=== PATIENT | male | born 1980 | race Caucasian/White ===

== ENCOUNTER → 2019-01-22 | Outpatient (CLI) | payer OTHER ==
[2019-01-22 13:01] LABS: Basophils % (A) 0 %; Eosinophils # (A) 0.2 k/uL (0-0.7); Eosinophils % (A) 3 %; HCT 45.3 % (39.0-53.0); HGB 15.5 gm/dL (13.0-17.5); Lymphocytes # (A) 2.2 k/uL (1.0-4.8); Lymphocytes % (A) 32 %; MCH 30.4 pg (25.0-35.0); MCHC 34.2 g/dL (31.0-37.0); MCV 88.8 fL (80.0-100.0); Mean Platelet Volume 6.5; Monocytes # (A) 0.3 k/uL (0-1.0); Monocytes % (A) 5 %; Neutrophils % (A) 58 %; Platelet Count 233 k/uL (150-450); WBC 6.9 k/uL (3.8-10.6)
[2019-01-22 16:42] LABS: African American GFR (CKD) 126.9 (60.0-200.0); Albumin 4.6 g/dL (3.80-4.90); Albumin/Globulin Ratio 1.92 (1.60-3.17); Anion Gap 11.2 mmol/L (4.00-12.00); BUN/Creat Ratio 15.56 Ratio (12.00-20.00); Calcium 9.4 mg/dL (8.7-10.3); Carbon Dioxide 23.8 mmol/L (21.6-31.8); Globulin 2.4 g/dL (1.6-3.3); Potassium 4.1 mmol/L (3.5-5.5); Total Bilirubin 0.8 mg/dL (0.2-1.2)
[2019-01-22 17:47] LABS: T4, Free (Free Thyroxine) 0.9 ng/dL (0.80-1.80)
== END | disposition home or self-care (01) ==
LOC: LABWHC1 11:10
PROVIDERS: ATTEND Nurse Practitioner Acute Care
DX: E55.9 Vitamin D deficiency, unspecified (principal); R41.3 Other amnesia
CPT/HCPCS: 36415; 80053; 82306; 82607; 84207; 84439; 84443; 84481; 85025

== ENCOUNTER → 2019-05-15 | Outpatient (CLI) | payer OTHER ==
--- NOTE | 2019-05-15 16:22 | P.HPBAR ---
Bariatric H&P - History & Physicial H&P Date: 05/15/19 History & Physicial: Visit/CC: Patient initial contact: Initial weight: Initial weight in pounds: Height: Initial BMI: Last weight: Current weight: Current weight in pounds: Current BMI: [place] body weight (based on NIH guidelines): Excess body weight loss: The patient is a 38 year-old M who presents for Bariatric Assessment. He comes in for weight loss. He is looking into the sleeve gastrectomy. He is looking into GERD. He is the brother of the young. He had blood in his stools. Dr. Felix. Done 2 weeks ago. Needs urine test. No dysphagia. He reports severe heartburn. High blood pressure. No snoring. He has diabetes. PLAN: 1. EGD 2. Esophagram 3. Labs 4. Past Medical History Past Medical History: GERD/Reflux, Hypertension Additional Past Medical History / Comment(s): scoliosis Past Surgical History: Cholecystectomy Bariatric Checklist Checklist: Plan: Checklist: EGD: 1. Hiatal hernia: 2. H. Pylori: HgbA1c: Vitamin D: Smoking: Primary care physician referral: Psychiatry clearance: Cardiology clearance: Sleep study: Diet journal: VTE risk score: VTE risk level: Rehab needs at discharge:
[2019-05-15 17:22] VITALS: BP 130/80; PULSE 94; TEMP 98.1; BMI 40.7
[2019-05-15 18:56] LABS: INR 0.9 (<1.2); Partial Thromboplastin Time 24.1 sec (22.0-30.0); Prothrombin Time 9.6 sec (9.0-12.0)
[2019-05-15 18:57] LABS: Basophils # (A) 0.1 k/uL (0-0.2); Basophils % (A) 1 %; Eosinophils # (A) 0.3 k/uL (0-0.7); Eosinophils % (A) 3 %; HCT 47.5 % (39.0-53.0); HGB 15.8 gm/dL (13.0-17.5); Lymphocytes # (A) 3.3 k/uL (1.0-4.8); Lymphocytes % (A) 35 %; MCH 29.2 pg (25.0-35.0); MCHC 33.2 g/dL (31.0-37.0); MCV 87.8 fL (80.0-100.0); Mean Platelet Volume 8.2; Monocytes # (A) 0.6 k/uL (0-1.0); Monocytes % (A) 6 %; Neutrophils % (A) 53 %; Platelet Count 286 k/uL (150-450); RBC 5.42 m/uL (4.30-5.90); RDW 12.6 % (11.5-15.5); WBC 9.4 k/uL (3.8-10.6)
[2019-05-16 01:51] LABS: % Iron Saturation 17.19 (15.00-50.00); African American GFR (CKD) 126.9 (60.0-200.0); Albumin 4.8 g/dL (3.80-4.90); Albumin/Globulin Ratio 2.18 (1.60-3.17); Anion Gap 14.8 mmol/L (4.00-12.00); BUN/Creat Ratio 14.44 Ratio (12.00-20.00); Carbon Dioxide 22.2 mmol/L (21.6-31.8); Chol/HDL Ratio 5.1; Ferritin 313.4 ng/mL (22.0-322.0); Folate, Serum 20.5 ng/mL; Globulin 2.2 g/dL (1.6-3.3); Magnesium 1.5 mg/dL (1.5-2.4); Non-African American GFR(CKD) 109.5 (60.0-200.0); Phosphorus 3.7 mg/dL (2.4-5.1); Potassium 4.2 mmol/L (3.5-5.5); Total Bilirubin 0.6 mg/dL (0.3-1.2)
[2019-05-16 03:57] LABS: Hemoglobin A1C 10.1 % (4.0-6.0)
== END | disposition home or self-care (01) ==
LOC: BARWHC3 15:18
PROVIDERS: ATTEND Surgery Plastic and Reconstructive Surgery
DX: K21.9 Gastro-esophageal reflux disease without esophagitis (principal); K92.1 Melena; I10 Essential (primary) hypertension; E11.9 Type 2 diabetes mellitus without complications; Z90.49 Acquired absence of other specified parts of digestive tract; E66.01 Morbid (severe) obesity due to excess calories; E21.1 Secondary hyperparathyroidism, not elsewhere classified; E89.1 Postprocedural hypoinsulinemia; D50.9 Iron deficiency anemia, unspecified; K90.9 Intestinal malabsorption, unspecified; E55.9 Vitamin D deficiency, unspecified; K76.9 Liver disease, unspecified; N19 Unspecified kidney failure; K50.90 Crohn's disease, unspecified, without complications; Z71.51 Drug abuse counseling and surveillance of drug abuser; Z68.41 Body mass index [BMI] 40.0-44.9, adult
CPT/HCPCS: 84255; 84134; 84425; 80061; 80053; 82607; 82728; 82525; 82746; 83540; 83550; 83735; 84100; 84443; 84590; 84630; 85025; 85610; 85730; 82306; 83970; 83036; 93005; G0480; G0463; 80323; 83721; 99211

== ENCOUNTER → 2019-05-27 | Outpatient (CLI) | payer OTHER ==
--- NOTE | 2019-05-27 09:21 | FL ---
EXAMINATION TYPE: FL barium swallow DATE OF EXAM: 05/27/2019 CLINICAL HISTORY: Gastroesophageal reflux, dysphagia TECHNIQUE: A double contrast esophagram is performed utilizing air and barium. A total of 1.05 andre te of fluoroscopic time was utilized during procedure. 31 fluoroscopic images were saved. COMPARISON: None FINDINGS: The esophagus shows normal motility and emptying into the stomach. No evidence of hiatal h ernia or stricture noted. Mild gastroesophageal reflux was seen during real time performance of this study in the supine position. No gastroesophageal reflux in the upright gravity dependent position. IMPRESSION: Mild gastroesophageal reflux in the supine position only.
== END | disposition home or self-care (01) ==
LOC: RADUSWWP 08:38
PROVIDERS: ATTEND Surgery Plastic and Reconstructive Surgery
DX: K21.9 Gastro-esophageal reflux disease without esophagitis (principal)
CPT/HCPCS: 74220

== ENCOUNTER → 2019-06-05 | Outpatient (CLI) | payer OTHER ==
[2019-06-05 17:08] VITALS: BP 117/87; PULSE 98; RESP 16; TEMP 98.1; BMI 40.7
--- NOTE | 2019-06-05 17:38 | P.PN ---
Subjective Progress Note Date: 06/05/19 DATE OF SERVICE: 06/05/2019 CHIEF COMPLAINT: Morbid obesity HISTORY OF PRESENT ILLNESS: Armani Wagner is a 38-year-old male who comes in with lifelong morbid obesity. He comes in looking into the sleeve gastrectomy. He has a strong family history of morbid obesity including diabetes. No current abdominal pain. He does report gastroesophageal reflux disease. At height of 5 feet 11.5 inches, his ideal body weight is 178 pounds. He comes in at his highest 295 pounds unchanged from 1 month ago. His body mass index is 40.7. He is 117 pounds overweight. PAST MEDICAL HISTORY: 1. Morbid obesity due to excess calories 2. Body mass index of 40.7, initial 3. Diabetes type 2, non-insulin dependent 4. Hyperlipidemia 5. Iron deficiency anemia 6. Hypertensive heart disease 7. Osteoarthritis of the knees 8. Hyperlipidemia 9. Osteoarthritis of the back 10. Scoliosis PAST SURGICAL HISTORY: 1. Cholecystectomy HOME MEDICATIONS: Home Medications Medication Instructions Recorded Confirmed Omeprazole [PriLOSEC] 20 mg PO AC-BRKFST 12/11/14 06/06/19 Cholecalciferol [Vitamin D3 (25 2,000 unit PO DAILY 05/15/19 06/06/19 Mcg = 1000 Iu)] Fenofibrate 54 mg PO DAILY 05/15/19 06/06/19 Ferrous Sulfate [Iron (65 MG 65 mg PO DAILY 05/15/19 06/06/19 Elemental)] Loratadine [Claritin] 10 mg PO DAILY 05/15/19 06/06/19 Losartan [Cozaar] 50 mg PO DAILY 05/15/19 06/06/19 Meloxicam [Mobic] 7.5 mg PO DAILY 05/15/19 06/06/19 Multivit-Min/Folic/Vit K/Lycop 1 tab PO DAILY 05/15/19 06/06/19 [Men's Multivitamin Tablet] Simvastatin [Zocor] 5 mg PO HS 05/15/19 06/06/19 amLODIPine [Norvasc] 10 mg PO DAILY 05/15/19 06/06/19 glipiZIDE [Glucotrol] 10 mg PO AC-BRKFST 05/15/19 06/06/19 metFORMIN HCL 500 mg PO DAILY 05/15/19 06/06/19 ALLERGIES: Allergies Allergy/AdvReac Type Severity Reaction Status Date / Time No Known Allergies Allergy Verified 12/11/14 16:02 SOCIAL HISTORY: Past tobacco use. FAMILY HISTORY: No family history of ulcerative colitis disease or Crohn's disease. Family history of morbid obesity. No lupus in the family. No reports of stomach or esophageal cancer. Family history of diabetes. REVIEW OF ORGAN SYSTEMS: CONSTITUTIONAL: At height of 5 feet 11.5 inches, his ideal body weight is 178 pounds. He comes in at his highest 295 pounds. His body mass index is 40.7. He is 117 pounds overweight. HEENT: Denies any active troubles with vision or hearing. Has troubles with swallowing. ENDOCRINE: Has diabetes. No hypothyroidism. CARDIOVASCULAR: Past reports of palpitations or heart attacks or chest pain. RESPIRATORY: Has daytime somnolence. No asthma. GASTROINTESTINAL: Denies any bright red blood per rectum. No diarrhea. No constipation. MUSCULOSKELETAL: Has lower back pain and joint pain. Has osteoarthritis of the knees. NEURO: No headaches. No seizure disorders. PSYCH: Denies depression. No suicidal ideation. RHEUMATOLOGIC: No lupus. No rheumatoid arthritis. HEMATOLOGIC: Denies any abnormal bleeding or bruising. No personal history of DVTs. SKIN: No rash. No skin cancer. PHYSICAL EXAM: VITAL SIGNS: Height 5 foot 11.5 inches, weight 295 pounds. BMI 40.7 Vital Signs Temp 98.1 F 06/05/19 17:06 Pulse 98 06/05/19 17:06 Resp 16 06/05/19 17:06 BP 117/87 06/05/19 17:06 Pulse Ox GENERAL: Well-developed in no acute distress. HEENT: No scleral icterus. Extraocular movements grossly intact. Hears conversational speech. No nasal drainage. NECK: Supple without lymphadenopathy. CHEST: Nonlabored respirations with equal bilateral excursions. CARDIOVASCULAR: Regular rate and regular rhythm. Distal 2+ pulses. ABDOMEN: Obese, soft, nontender, nondistended. MUSCULOSKELETAL: No clubbing, cyanosis. NEURO: No focal or lateralizing signs. Cranial nerves 2 through 12 grossly within normal limits. PSYCH: Appropriate affect. Alert and oriented to person, place and time. SKIN: Good skin turgor. Well perfused. STUDIES: Esophagram independently reviewed with intra-esophageal reflux. No large hiatal hernia. LABS: Hgb A1C over 10.0! ASSESSMENT: 1. Morbid obesity due to excess calories 2. Body mass index of 40.7, initial 3. Diabetes type 2, non-insulin dependent, uncontrolled 4. Hyperlipidemia 5. Iron deficiency anemia 6. Hypertensive heart disease 7. Osteoarthritis of the knees 8. Hyperlipidemia 9. Osteoarthritis of the back 10. Scoliosis 11. Gastroesophageal reflux disease PLAN: 1. He has uncontrolled diabetes and will need strict control with goal Hgb A1c of 8.0 or less. 2. Referral to physical therapy attendant advised 3. With his severity of reflux disease, recommend upper endoscopy. 4. Patient is elevated risk for perioperative complications with his procedures with poorly controlled diabetes. Objective - Vital Signs Vital signs: Vital Signs Temp 98.1 F 06/05/19 17:06 Pulse 98 06/05/19 17:06 Resp 16 06/05/19 17:06 BP 117/87 06/05/19 17:06 Pulse Ox Intake & Output 06/04/19 06/05/19 06/05/19 18:59 06:59 18:59 Weight 134.263 kg
== END | disposition home or self-care (01) ==
LOC: BARWHC3 16:21
PROVIDERS: ATTEND Surgery Plastic and Reconstructive Surgery
DX: E66.01 Morbid (severe) obesity due to excess calories (principal); E11.9 Type 2 diabetes mellitus without complications; E78.5 Hyperlipidemia, unspecified; D50.9 Iron deficiency anemia, unspecified; I11.9 Hypertensive heart disease without heart failure; M17.0 Bilateral primary osteoarthritis of knee; M41.9 Scoliosis, unspecified; K21.9 Gastro-esophageal reflux disease without esophagitis; Z68.41 Body mass index [BMI] 40.0-44.9, adult; Z90.49 Acquired absence of other specified parts of digestive tract; Z83.49 Family history of other endocrine, nutritional and metabolic diseases; Z87.891 Personal history of nicotine dependence; Z79.1 Long term (current) use of non-steroidal anti-inflammatories (NSAID); Z79.84 Long term (current) use of oral hypoglycemic drugs; Z79.899 Other long term (current) drug therapy
CPT/HCPCS: 99211

== ENCOUNTER → 2019-09-18 | Outpatient (CLI) | payer OTHER ==
[2019-09-18 16:40] VITALS: BP 129/95; PULSE 106; RESP 16; TEMP 98; BMI 40.6
--- NOTE | 2019-09-18 21:05 | P.PN ---
Subjective Progress Note Date: 09/18/19 Patient left without being seen. Nurse visit only Objective - Vital Signs Vital signs: Vital Signs Temp 98 F 09/18/19 16:38 Pulse 106 H 09/18/19 16:38 Resp 16 09/18/19 16:38 BP 129/95 09/18/19 16:38 Pulse Ox Intake & Output 09/18/19 09/18/19 09/19/19 06:59 18:59 06:59 Weight 133.81 kg
== END | disposition home or self-care (01) ==
LOC: BARWHC3 15:41
PROVIDERS: ATTEND Surgery Plastic and Reconstructive Surgery
DX: Z53.29 Procedure and treatment not carried out because of patient's decision for other reasons (principal)
CPT/HCPCS: 99211

== ENCOUNTER 2020-10-01 07:43 | Day surgery (SDC) | payer OTHER ==
[2020-09-30 11:44] VITALS: BMI 47.2
[~2020-10-01 07:43] MED LIST: DEXAMETHASONE SOD PHOSPHATE 4 MG/ML 1 ML VIAL IV ONE; HEPARIN SODIUM,PORCINE/PF 5,000 UNIT/0.5 ML SYRINGE SQ PRN; HYDROmorphone 0.5 MG/0.5 ML SYRINGE IVP PRN; LACTATED RINGERS 1,000 ML IV SCH; LIDOCAINE 1% (10MG/ML) FOR IV START INTRADERMA PRN; MIDAZOLAM 2 MG/2 ML VIAL IV PRN; ONDANSETRON 4 MG/2 ML VIAL IVP ONE; Pre Op ABX Message 1 EACH MISC MISCELLANE ONE; ceFAZolin 3 GM in SODIUM CHLORIDE 0.9% 100 ML IVPB PRN
[2020-10-01 08:22] LABS: Glucose,Whole Blood 166 mg/dL (75-99)
[2020-10-01] MEDS ORDERED: ACETAMINOPHEN TAB 500 MG TAB PO STA (08:44)
--- NOTE | 2020-10-01 08:44 | P.GSHP ---
History of Present Illness H&P Date: 10/01/20 CHIEF COMPLAINT: Chest wall mass HISTORY OF PRESENT ILLNESS: The patient is a 39 year-old male with history of mass along the chest wall lesion. He presents today for surgical excision. PAST MEDICAL HISTORY: Please see list. PAST SURGICAL HISTORY: Please see list. MEDICATIONS: Please see list. ALLERGIES: Please see list. SOCIAL HISTORY: No illicit drug use FAMILY HISTORY: No reports of Crohn disease or ulcerative colitis. REVIEW OF ORGAN SYSTEMS: CONSTITUTIONAL: No reports of fevers or chills. GI: Denies any blood in stools or constipation. PHYSICAL EXAM: VITAL SIGNS: Stable SKIN: Well perfused. Good skin turgor. 4 cm tumor overlying the chest wall. Musculoskeletal: No clubbing cyanosis or edema GENERAL: Well developed and in no acute distress. Pleasant. HEENT: No sclera icterus. Extraocular movements grossly intact. Moist buccal mucosa. Head is atraumatic, normocephalic. Hears conversational speech. No nasal drainage. NECK: Supple without lymphadenopathy. No JV distention. CHEST: Non-labored respirations and equal bilateral excursions. CARDIOVASCULAR: Regular rate and rhythm. Palpable 2+ radial pulses. ABDOMEN: Soft. Non-tender. Nondistended. NEUROLOGIC: No focal or lateralizing signs. PSYCH: Appropriate affect. Alert and oriented to person, place and time. ASSESSMENT: 1. Mass along chest wall. PLAN: 1. Will proceed of excision of subcutaneous tumor along the bilateral upper chest wall 2. DVT prophylaxis. 3. Antibiotic prophylaxis. 4. Time of recovery, at least one week. Past Medical History Past Medical History: Diabetes Mellitus, GERD/Reflux, Hypertension, Sleep Apnea/CPAP/BIPAP Additional Past Medical History / Comment(s): chest lipoma,no cpap, hx scoliosis History of Any Multi-Drug Resistant Organisms: None Reported Past Surgical History: Cholecystectomy Additional Past Surgical History / Comment(s): orthoscopic sx on bilateral knees to repair torn meniscus Past Anesthesia/Blood Transfusion Reactions: No Reported Reaction Additional Past Anesthesia/Blood Transfusion Reaction / Comment(s): No blood transfusion to date Smoking Status: Former smoker - Past Family History Mother Family Medical History: Diabetes Mellitus, Hypertension Additional Family Medical History / Comment(s): Bariatric sx: RnY, Diabetic retinopathy, Father Family Medical History: Coronary Artery Disease (CAD), Diabetes Mellitus, Hyperlipidemia, Hypertension, Renal Disease Additional Family Medical History / Comment(s): at age 63, end stage renal failure, lap band sx x2 (patient states his father never followed the rules) Medications and Allergies Home Medications Medication Instructions Recorded Confirmed Type Omeprazole [PriLOSEC] 20 mg PO AC-BRKFST 12/11/14 10/01/20 History Ferrous Sulfate [Iron (65 MG 65 mg PO DAILY 05/15/19 10/01/20 History Elemental)] Loratadine [Claritin] 10 mg PO DAILY 05/15/19 10/01/20 History Losartan [Cozaar] 50 mg PO QAM 05/15/19 10/01/20 History Meloxicam [Mobic] 7.5 mg PO DAILY 05/15/19 10/01/20 History amLODIPine [Norvasc] 10 mg PO QAM 05/15/19 10/01/20 History Dapagliflozin/Metformin HCl 1 each PO DAILY 09/30/20 10/01/20 History [Xigduo Xr 5 mg-500 mg Tablet] Insulin Aspart [NovoLOG Flexpen] 18 units SQ TID-W/MEALS 09/30/20 10/01/20 History Insulin Glargine,Hum.rec.anlog 40 unit SQ QAM 09/30/20 10/01/20 History [Lantus Solostar] Liraglutide [Victoza 3-Thuan] 0.6 mg SQ DAILY 09/30/20 10/01/20 History Pioglitazone [Actos] 30 mg PO DAILY 09/30/20 10/01/20 History Allergies Allergy/AdvReac Type Severity Reaction Status Date / Time No Known Allergies Allergy Verified 10/01/20 08:07 Surgical - Exam Vital Signs Temp Pulse Resp BP Pulse Ox 97.4 F L 96 20 152/92 95 10/01/20 08:26 10/01/20 08:26 10/01/20 08:26 10/01/20 08:26 10/01/20 08:26 Results - Labs Abnormal Lab Results - Last 24 Hours (Table) 10/01/20 Range/Units 08:18 POC Glucose (mg/dL) 166 H (75-99) mg/dL
[2020-10-01 08:58] LABS: African American GFR (CKD) >90 (>60 ml/min/1.73 sqM); Blood Urea Nitrogen 19 mg/dL (9-20); Non-African American GFR(CKD) >90 (>60 ml/min/1.73 sqM); Potassium 4.4 mmol/L (3.5-5.1)
[2020-10-01] MEDS ORDERED: MIDAZOLAM 2 MG/2 ML VIAL ONE (08:58)
[2020-10-01] MEDS ORDERED: PROPOFOL 10 MG/ML 20 ML VIAL IV ONE (08:58)
[2020-10-01] MEDS ORDERED: fentaNYL (PF) 50 MCG/ML 2 ML AMP ONE (08:58)
[2020-10-01] MEDS ORDERED: SUCCINYLCHOLINE CHLORIDE 100 MG/5 ML SYR IV ONE (08:58)
[2020-10-01] MEDS ORDERED: LIDOCAINE 1% INJ 10MG/ML (20 ML MDV) ONE (08:58)
[2020-10-01 09:08] LABS: Basophils # (A) 0.1 k/uL (0-0.2); Basophils % (A) 1 %; Eosinophils # (A) 0.2 k/uL (0-0.7); Eosinophils % (A) 3 %; HCT 46.3 % (39.0-53.0); HGB 15.5 gm/dL (13.0-17.5); Lymphocytes # (A) 2.5 k/uL (1.0-4.8); Lymphocytes % (A) 32 %; MCH 28.5 pg (25.0-35.0); MCHC 33.4 g/dL (31.0-37.0); MCV 85.3 fL (80.0-100.0); Mean Platelet Volume 7.5; Monocytes # (A) 0.4 k/uL (0-1.0); Monocytes % (A) 5 %; Neutrophils # (A) 4.5 k/uL (1.3-7.7); Neutrophils % (A) 58 %; Platelet Count 299 k/uL (150-450); RBC 5.43 m/uL (4.30-5.90); RDW 13.6 % (11.5-15.5); WBC 7.8 k/uL (3.8-10.6)
[2020-10-01] MEDS ORDERED: LIDOCAINE 1%-EPI 1:100,000 20 ML VIAL SQ ONE ×2 (09:18→09:42)
[2020-10-01] MEDS ORDERED: LACTATED RINGERS 1,000 ML IV ONE (09:57)
[2020-10-01 10:15] VITALS: TEMP 96.8
--- NOTE | 2020-10-01 10:23 | P.OP ---
Date of Procedure: 10/01/20 Description of Procedure: SURGEON: ABIGAIL MORE MD SURVEY DIRECTOR: None. PREOPERATIVE DIAGNOSES: 1. Left chest wall mass 2. Diabetes type 2, insulin-dependent with complication 3. Morbid obesity due to excess calories, BMI 47.2 4. Hypertensive heart disease 5. Gastroesophageal reflux disease 6. Obstructive sleep apnea POSTOPERATIVE DIAGNOSES: 1. Left chest wall mass, 6 cm 2. Diabetes type 2, insulin-dependent with complication 3. Morbid obesity due to excess calories, BMI 47.2 4. Hypertensive heart disease 5. Gastroesophageal reflux disease 6. Obstructive sleep apnea PROCEDURES PERFORMED: 1. Excision of the subcutaneous left chest wall mass, 6 cm 2. Intermediate closure of 8 cm along the chest wall. ANESTHESIA: GETA and local ESTIMATED BLOOD LOSS: 5 mL. SPECIMENS REMOVED: Chest wall mass COMPLICATIONS: None. FINDINGS: 1. Lipomatous mass left chest wall along the left inframammary crease over 6 cm excised INDICATIONS: The patient is a 39-year-old male with painful and palpable tumor along the left chest wall. Now he presents for surgical intervention. Benefits and risks of surgical intervention were described including bleeding, infection. Informed consent was obtained. DESCRIPTION OR PROCEDURE: Patient was brought into the operating room, laid in supine position. After general induction, the chest was prepped and draped in a standard sterile fashion with ChloraPrep. Timeout protocol was confirmed with the surgical team regarding the patient's name, procedure to be performed including preoperative medications. DVT prophylaxis was confirmed. A field block was placed of the left chest wall inferior to the left inframammary crease. Indelible marker was placed around the mid chest lesion. A transverse incision using #15 blade was made along the marking into the dermis and subcutaneous tissue. Electro-Bovie cautery was used to excise the lesion down to the fascia in a circumferential fashion. A 4 cm lipoma was excised including pathological subcutaneous tissue the total size of 6 cm. 0 Vicryl for the deep subcutaneous tissue followed by 3-0 Monocryl in a running subcuticular fashion was placed along the dermis. The skin was cleansed and Exofin tape was applied followed by Optifoam. Local anesthetic was placed. At the end of the procedure, needle, sponge, and instrument count was verified correct by surgical asst. The patient was awoken and taken to the second stage postanesthesia care unit. The patient tolerated the procedure well. Plan - Discharge Summary Discharge Rx Participant: No New Discharge Prescriptions: New Acetaminophen Tab [Tylenol Tab] 1,000 mg PO Q6HR PRN #30 tablet PRN Reason: Pain Continue Omeprazole [PriLOSEC] 20 mg PO AC-BRKFST amLODIPine [Norvasc] 10 mg PO QAM Meloxicam [Mobic] 7.5 mg PO DAILY Loratadine [Claritin] 10 mg PO DAILY Losartan [Cozaar] 50 mg PO QAM Ferrous Sulfate [Iron (65 MG Elemental)] 65 mg PO DAILY Pioglitazone [Actos] 30 mg PO DAILY Liraglutide [Victoza 3-Thuan] 0.6 mg SQ DAILY Insulin Aspart [NovoLOG Flexpen] 18 units SQ TID-W/MEALS Dapagliflozin/Metformin HCl [Xigduo Xr 5 mg-500 mg Tablet] 1 each PO DAILY Insulin Glargine,Hum.rec.anlog [Lantus Solostar] 40 unit SQ QAM Discharge Medication List Omeprazole [PriLOSEC] 20 mg PO AC-BRKFST 12/11/14 [History] Ferrous Sulfate [Iron (65 MG Elemental)] 65 mg PO DAILY 05/15/19 [History] Loratadine [Claritin] 10 mg PO DAILY 05/15/19 [History] Losartan [Cozaar] 50 mg PO QAM 05/15/19 [History] Meloxicam [Mobic] 7.5 mg PO DAILY 05/15/19 [History] amLODIPine [Norvasc] 10 mg PO QAM 05/15/19 [History] Dapagliflozin/Metformin HCl [Xigduo Xr 5 mg-500 mg Tablet] 1 each PO DAILY 09/30/20 [History] Insulin Aspart [NovoLOG Flexpen] 18 units SQ TID-W/MEALS 09/30/20 [History] Insulin Glargine,Hum.rec.anlog [Lantus Solostar] 40 unit SQ QAM 09/30/20 [History] Liraglutide [Victoza 3-Thuan] 0.6 mg SQ DAILY 09/30/20 [History] Pioglitazone [Actos] 30 mg PO DAILY 09/30/20 [History] Acetaminophen Tab [Tylenol Tab] 1,000 mg PO Q6HR PRN #30 tablet 10/01/20 [Rx] Follow up Appointment(s)/Referral(s): Abigail More MD [STAFF PHYSICIAN] - 10/06/20 Patient Instructions/Handouts: Excision of Skin Lesion (DC) Activity/Diet/Wound Care/Special Instructions: DO NOT REMOVE DRESSING. SEE INSTRUCTIONS ON DRESSING May shower. No bath tub soaks for two weeks until October 15 Diet as tolerated. Use Tylenol and ibuprofen or Aleve scheduled for the next 24-48 hours for best pain relief. Use ice along incisions for today to prevent swelling. Discharge Disposition: HOME SELF-CARE
[2020-10-01] MEDS ORDERED: MEPERIDINE 50 MG/ML SYRINGE IVP ONE (10:56)
[2020-10-01] MEDS ORDERED: ONDANSETRON 4 MG/2 ML VIAL IVP ONE (10:56)
[2020-10-01 12:08] LABS: Glucose,Whole Blood 210 mg/dL (75-99)
[2020-10-01] MEDS ORDERED: SCOPOLAMINE 1.5MG/72HR PATCH TRANSDERM ONE (12:18)
[2020-10-01 12:31] VITALS: BP 125/80; PULSE 98; RESP 18
== END 2020-10-01 12:46 | disposition home or self-care (01) ==
LOC: OR 07:43
PROVIDERS: ATTEND Surgery Plastic and Reconstructive Surgery
DX: D17.1 Benign lipomatous neoplasm of skin and subcutaneous tissue of trunk (principal); E11.9 Type 2 diabetes mellitus without complications; K21.9 Gastro-esophageal reflux disease without esophagitis; G47.33 Obstructive sleep apnea (adult) (pediatric); M41.9 Scoliosis, unspecified; I11.9 Hypertensive heart disease without heart failure; E66.01 Morbid (severe) obesity due to excess calories; Z68.42 Body mass index [BMI] 45.0-49.9, adult; Z90.49 Acquired absence of other specified parts of digestive tract; Z98.890 Other specified postprocedural states; Z87.891 Personal history of nicotine dependence; Z83.3 Family history of diabetes mellitus; Z82.49 Family history of ischemic heart disease and other diseases of the circulatory system; Z83.518 Family history of other specified eye disorder; Z84.1 Family history of disorders of kidney and ureter; Z79.84 Long term (current) use of oral hypoglycemic drugs; Z79.1 Long term (current) use of non-steroidal anti-inflammatories (NSAID); Z79.4 Long term (current) use of insulin; Z79.899 Other long term (current) drug therapy
CPT/HCPCS: 88304; 82565; 84132; 84520; 85025; 21552; J2250; J1100; J2175; J0690; J2405; J2001; J3010; J0330; J2704; J1790; J1644

== ENCOUNTER → 2020-10-15 | Outpatient (CLI) | payer OTHER ==
[2020-10-15 12:18] LABS: Partial Thromboplastin Time 24.6 sec (22.0-30.0); Prothrombin Time 10.4 sec (9.0-12.0)
[2020-10-15 14:46] LABS: HCT 50.3 % (39.6-50.0); HGB 16.6 g/dL (13.0-17.0); MCH 28.7 pg (27.0-32.0); Mean Platelet Volume 10.4 fL (9.5-12.2); Platelet Count 355 X 10*3/uL (140-440); RBC 5.78 X 10*6/uL (4.40-5.60); RDW 12.9 % (11.5-14.5); WBC 8.95 X 10*3/uL (4.50-10.00)
[2020-10-15 16:56] LABS: Hemoglobin A1C 7.3 % (4.0-6.0)
[2020-10-16 01:28] LABS: Ferritin 96.8 ng/mL (22.0-322.0)
[2020-10-16 01:38] LABS: % Iron Saturation 18.69 (15.00-50.00); African American GFR (CKD) 132.3 (60.0-200.0); Albumin/Globulin Ratio 1.61 (1.60-3.17); Anion Gap 14.9 mmol/L (4.00-12.00); BUN/Creat Ratio 23.75 Ratio (12.00-20.00); Carbon Dioxide 23.1 mmol/L (21.6-31.8); Chol/HDL Ratio 3.73; Folate, Serum 17.1 ng/mL; Globulin 3.1 g/dL (1.6-3.3); LDL Cholesterol,Calculated 81.2 mg/dL (0.0-131.0); Magnesium 1.7 mg/dL (1.5-2.4); Non-African American GFR(CKD) 114.1 (60.0-200.0); Phosphorus 4.4 mg/dL (2.4-5.1); Potassium 4.6 mmol/L (3.5-5.5); Total Bilirubin 0.6 mg/dL (0.3-1.2); Total Protein 8.1 g/dL (6.2-8.2); VLDL Calculation 30.8 mg/dL (5.00-40.00)
[2020-10-16 14:45] LABS: Zinc, Serum 79 ug/dL (60-130)
== END | disposition home or self-care (01) ==
LOC: LABWHC1 10:32
PROVIDERS: ATTEND Surgery Plastic and Reconstructive Surgery
DX: E89.1 Postprocedural hypoinsulinemia (principal); D50.8 Other iron deficiency anemias; E44.0 Moderate protein-calorie malnutrition; E55.9 Vitamin D deficiency, unspecified; K74.1 Hepatic sclerosis; N19 Unspecified kidney failure; K50.90 Crohn's disease, unspecified, without complications; E66.01 Morbid (severe) obesity due to excess calories; Z71.51 Drug abuse counseling and surveillance of drug abuser
CPT/HCPCS: 84255; 84134; 84425; 80061; 80053; 82607; 82728; 82525; 82746; 83540; 83550; 83735; 84100; 84443; 84590; 84630; 85027; 85610; 85730; 82306; 83970; 83036; 36415; G0480; 80323

== ENCOUNTER → 2020-11-11 | Outpatient (CLI) | payer OTHER ==
[2020-11-11 13:25] VITALS: BP 129/87; PULSE 94; RESP 18; TEMP 97; BMI 45.1
--- NOTE | 2020-11-11 14:13 | P.PN ---
Subjective Progress Note Date: 11/11/20 He is seeing a diabetic education. his weight has gone. Recommend food diary jounal. Needs 90 gram protein. Meal plans reviewed. chicken, tuna, premier protein. Weight. He has open wound from prior surgery. Recommend dry dressing. Objective - Vital Signs Vital signs: Vital Signs Temp 97 F L 11/11/20 13:20 Pulse 94 11/11/20 13:20 Resp 18 11/11/20 13:20 BP 129/87 11/11/20 13:20 Pulse Ox Intake & Output 11/10/20 11/11/20 11/11/20 18:59 06:59 18:59 Weight 148.415 kg
== END | disposition home or self-care (01) ==
LOC: BARWHC3 13:09
PROVIDERS: ATTEND Surgery Plastic and Reconstructive Surgery
DX: E66.01 Morbid (severe) obesity due to excess calories (principal); Z68.42 Body mass index [BMI] 45.0-49.9, adult
CPT/HCPCS: 99211

== ENCOUNTER → 2021-03-16 | Outpatient (CLI) | payer OTHER ==
[2021-03-16 15:00] LABS: Basophils # (A) 0.05 X 10*3/uL (0.00-0.10); Basophils % (A) 0.6 %; Eosinophils # (A) 0.27 X 10*3/uL (0.04-0.35); HCT 47.6 % (39.6-50.0); HGB 15.7 g/dL (13.0-17.0); Lymphocytes # (A) 2.55 X 10*3/uL (0.90-5.00); Lymphocytes % (A) 28.2 %; MCH 28.4 pg (27.0-32.0); MCV 86.1 fL (80.0-97.0); Mean Platelet Volume 10.7 fL (9.5-12.2); Monocytes # (A) 0.46 X 10*3/uL (0.20-1.00); Monocytes % (A) 5.1 %; Neutrophils # (A) 5.68 X 10*3/uL (1.80-7.70); Neutrophils % (A) 62.7 %; Platelet Count 324 X 10*3/uL (140-440); RBC 5.53 X 10*6/uL (4.40-5.60); RDW 13.1 % (11.5-14.5); WBC 9.05 X 10*3/uL (4.50-10.00)
[2021-03-16 16:21] LABS: African American GFR (CKD) 131.6 (60.0-200.0); Albumin 4.5 g/dL (3.8-4.9); Albumin/Globulin Ratio 1.7 (1.60-3.17); Anion Gap 15.4 mmol/L (10.00-18.00); BUN/Creat Ratio 14.57 Ratio (12.00-20.00); Blood Urea Nitrogen 11.6 mg/dL (9.0-27.0); Calcium 9.4 mg/dL (8.7-10.3); Carbon Dioxide 21.1 mmol/L (20.0-27.5); Globulin 2.7 g/dL (1.6-3.3); Non-African American GFR(CKD) 113.6 (60.0-200.0); T4, Free (Free Thyroxine) 0.89 ng/dL (0.800-1.800); Total Bilirubin 0.4 mg/dL (0.30-1.20); Total Protein 7.2 g/dL (6.2-8.2)
== END | disposition home or self-care (01) ==
LOC: LABWHC1 11:02
PROVIDERS: ATTEND Psychiatry & Neurology Neurology
DX: E55.9 Vitamin D deficiency, unspecified (principal); E53.9 Vitamin B deficiency, unspecified; I10 Essential (primary) hypertension; R42 Dizziness and giddiness; R41.3 Other amnesia; E11.9 Type 2 diabetes mellitus without complications
CPT/HCPCS: 36415; 80053; 82306; 82607; 84207; 84439; 84443; 84481; 85025

== ENCOUNTER → 2021-08-18 | Outpatient (CLI) | payer OTHER ==
--- NOTE | 2021-08-18 12:04 | US ---
EXAMINATION TYPE: US mass soft tissue chest/back DATE OF EXAM: 08/18/2021 COMPARISON: NONE CLINICAL HISTORY: R10.812 LUQ ABD TENDERNESS, R07.89 CHEST WALL PAIN. LUQ and chest wall pain at area of previous seroma removal LUQ/chest wall: 2 small hyperechoic areas measuring 1.0 x 0.6 x 1.4cm and 0.9 x 0.4 x 0.4cm with surr ounding fluid seen at patient's previous seroma removal site IMPRESSION: 1. Small nodules surrounded by fluid appeared to be present at the patient's palpable area of pain an d prior seroma removal. Clinical management is recommended.
== END | disposition home or self-care (01) ==
LOC: RADUSWWP 08:36
PROVIDERS: ATTEND Family Medicine
DX: R10.812 Left upper quadrant abdominal tenderness (principal); R07.89 Other chest pain

== ENCOUNTER → 2023-08-01 | Outpatient (CLI) | payer OTHER ==
[2023-08-01 13:41] VITALS: BP 143/90; PULSE 90; RESP 16; TEMP 98.2
--- NOTE | 2023-08-01 17:47 | P.SLEEP ---
History of Present Illness H&P Date: 08/01/23 This is a 42-year-old male patient, obese with a body mass index of 46, was coming in for a second opinion regarding obstructive sleep apnea. The patient has had previous evaluation to [facility]. The patient underwent a screening polysomnography that was done on 09/12/2022. This was interpreted by Dr. Redman. I also had a chance to review the raw data from the polysomnography. In summary, the patient is to history of 88%. Sleep architecture adequate however, there was some open of sensation of stage II sleep which was noted of 79%,. The patient had adequate distribution between stage I stage II stage III and REM sleep. And REM sleep was diminished and scored to be at 10%. He was found to have obstructive sleep apnea and it was mild. Overall AHI was 13.5. AHI during REM was 9.4. AHI in the supine body position was 20.5 and AHI in a nonsupine body position was 5.7. The total arousal index was 17.1. No significant nocturnal oxygen desaturations. Based on those results, the patient was offered a CPAP machine. After trying the CPAP machine for some time, the patient was unable to tolerate and returning the machine back and is coming in for further advice regarding other options of treatment. Overall, he is feeling well. He continues to snore. He goes to bed around midnight and wakes up 6:45 AM in the morning. He is currently disabled and the reason for his disability is extensive neuropathy and pain. He has diabetes mellitus type 2 and hypertension hyperlipidemia. Does not take any naps during the day. Positive while driving. His weight is up over the years and on average the patient has gained approximately 50 pounds over the past 5 years. He wakes up at times in the middle of the night and he describes waking up once or twice without any difficulties and sleep initiation. He sleeps in various body positions including back, side and stomach. No history of any congestion heart failure. No stroke. No atrial fibrillation. His functionality has been essentially well-preserved during the day. Does not fall asleep during day-to-day activities. No morning headaches. No head trauma. No history of any seizure activity. No cardiac arrhythmias. He was started on Mounjaro for weight loss and blood sugar control. He is also on Lantus insulin 44 units daily and NovoLog 12 units with meals 3 times a day. Rest of the medications were reviewed. Review of Systems Constitutional: Reports daytime sleepiness, Reports fatigue, Reports weight gain Eyes: denies as per HPI, denies blurred vision, denies bulging eye, denies decreased vision, denies diplopia, denies discharge, denies dry eye, denies irritation, denies itching, denies pain, denies photophobia, denies loss of peripheral vision, denies loss of vision, denies tunnel vision/blind spots Ears: deny: decreased hearing, ear discharge, earache, tinnitus Ears, nose, mouth and throat: Reports as per HPI Breasts: absent: as per HPI, gynecomastia Cardiovascular: Reports as per HPI Respiratory: Reports sleep apnea, Reports snoring Gastrointestinal: Reports as per HPI Genitourinary: Reports as per HPI Musculoskeletal: Reports as per HPI Musculoskeletal: absent: ankle pain, ankle stiffness, ankle swelling, as per HPI, elbow pain, elbow stiffness, elbow swelling, foot pain, foot stiffness, foot swelling, hand pain, hand stiffness, hand swelling, hip pain, hip stiffness, hip swelling, knee pain, knee stiffness, knee swelling, shoulder pain, shoulder stiffness, shoulder swelling, wrist pain, wrist stiffness, wrist swelling Integumentary: Reports as per HPI Neurological: Reports as per HPI, Reports burning pain, Reports paralysis, Reports paresthesias Psychiatric: Reports as per HPI Endocrine: Reports as per HPI, Reports fatigue Hematologic/Lymphatic: Reports as per HPI Allergic/Immunologic: Reports as per HPI Past Medical History Past Medical History: Diabetes Mellitus, GERD/Reflux, Hypertension, Sleep Apnea/CPAP/BIPAP Additional Past Medical History / Comment(s): chest lipoma,no cpap, hx scoliosis History of Any Multi-Drug Resistant Organisms: None Reported Past Surgical History: Cholecystectomy Additional Past Surgical History / Comment(s): orthoscopic sx on bilateral knees to repair torn meniscus Past Anesthesia/Blood Transfusion Reactions: No Reported Reaction Additional Past Anesthesia/Blood Transfusion Reaction / Comment(s): No blood transfusion to date Past Psychological History: Anxiety Smoking Status: Former smoker Past Alcohol Use History: Rare Additional Past Alcohol Use History / Comment(s): Quit smoking 2017, Had been smoking 16 years at 1pack/day Past Drug Use History: None Reported - Past Family History Mother Family Medical History: Diabetes Mellitus, Hypertension Additional Family Medical History / Comment(s): Bariatric sx: RnY, Diabetic retinopathy, Father Family Medical History: Coronary Artery Disease (CAD), Diabetes Mellitus, Hyperlipidemia, Hypertension, Renal Disease Additional Family Medical History / Comment(s): at age 63, end stage renal failure, lap band sx x2 (patient states his father never followed the rules) Medications and Allergies Home Medications Medication Instructions Recorded Confirmed Type Omeprazole [PriLOSEC] 20 mg PO AC-BRKFST 12/11/14 08/01/23 History Loratadine [Claritin] 10 mg PO DAILY 05/15/19 08/01/23 History Losartan [Cozaar] 50 mg PO QAM 05/15/19 08/01/23 History Meloxicam [Mobic] 7.5 mg PO DAILY 05/15/19 08/01/23 History amLODIPine [Norvasc] 10 mg PO QAM 05/15/19 08/01/23 History Dapagliflozin/Metformin HCl 1 each PO DAILY 09/30/20 08/01/23 History [Xigduo Xr 5 mg-500 mg Tablet] Insulin Aspart [NovoLOG Flexpen] 14 units SQ TID-W/MEALS 09/30/20 08/01/23 History Insulin Glargine,Hum.rec.anlog 40 unit SQ QAM 09/30/20 08/01/23 History [Lantus Solostar Pen] Liraglutide [Victoza 3-Thuan] 1.8 mg SQ DAILY 09/30/20 11/11/20 History Pioglitazone [Actos] 30 mg PO DAILY 09/30/20 08/01/23 History gemfibroziL [Lopid] 600 mg PO DAILY 10/07/20 08/01/23 History Tirzepatide [Mounjaro] 5 mg SQ WEEKLY MDD 5 mg 08/01/23 08/01/23 History traMADol HCL 50 mg PO Q6H 08/01/23 08/01/23 History Allergies Allergy/AdvReac Type Severity Reaction Status Date / Time No Known Allergies Allergy Verified 11/11/20 13:25 Physical Exam Vitals: Vital Signs Temp Pulse Resp BP Pulse Ox 08/01/23 13:20 98.2 F 90 16 143/90 97 Intake and Output 08/01/23 08/01/23 08/01/23 06:59 14:59 22:59 Other: Weight 149.685 kg Morbidly obese with a body mass index of 46. The patient appeared well nourished and normally developed. Vital signs as documented. Head exam is unremarkable. No scleral icterus or corneal arcus noted. Neck is without jugular venous distension, thyromegaly, or carotid bruits. The patient has a Mallampati class IV with crowding of the posterior pharynx. Carotid upstrokes are brisk bilaterally. Lungs are clear to auscultation and percussion. Cardiac exam reveals the PMI to be normally sized and situated. Rhythm is regular. First and second heart sounds normal. No murmurs, rubs or gallops. Abdominal exam reveals normal bowel sounds, no masses, no organomegaly and no aortic enlargement. Extremities are nonedematous and both femoral and pedal pulses are normal. Examination of the skin revealed no evidence of significant rashes, suspicious appearing nevi or other concerning lesions. Neurologically, the patient is awake and alert and the patient does not have any focal neurological deficit. Cranial nerves are essentially intact. Assessment and Plan Plan: Obstructive sleep apnea, mild at baseline with an AHI of 13.5, positional as the patient's AHI is as high as 20.5 minutes supine body position and dropped down to 5.8 while being in nonsupine body position. No significant worsening in AHI during REM sleep. The patient has failed CPAP therapy as offered to him by another physician. Chronic fatigue and limited sleepiness with an [place] score of 3 Obesity BMI 46 Diabetes mellitus type 2, maintained on a combination of Lantus and started on Mounjaro Hypertension Hyperlipidemia Severe peripheral neuropathy Medical disability due to above-mentioned comorbidities Plan I had a lengthy discussion with the patient. I went over the sleep study results. It was obvious to me that the patient has mild obstructive sleep apnea which was essentially positional in nature. His disease was obviously worsened in supine body position. While sleeping on his side, the AHI was mildly abnormal. At the same time, the patient had minor abnormalities in his sleep architecture and his symptoms are limited to some chronic fatigue and mild sleepiness. As such, the patient was given CPAP therapy and he has failed the treatment due to poor tolerability and inability to maintain his CPAP and the machine has been returned back to the [facility]. At this point in time, I do not see the need for repeating the study. The patient is disease is positional. Sleeping on his side showed improved his symptoms considerably knowing that his disease is positional and is worse in a supine body position. He has been already started on Mounjaro and losing approximately 10% of his body weight should improve his symptoms of obstructive sleep apnea. I do not see the need for CPAP therapy at this point. He does not qualify for inspire/hypoglossal nerve stimulation therapy due to his elevated body mass index. Conservative measures of sleeping on his side and losing weight should help. I also gave him the option of an oral appliance and I gave him the appropriate information to visit his dentist to come up with an oral appliance which should be able to improve his snoring and positional obstructive sleep apnea. I advised the patient to come back to me in a years time to assess his progress. He made a commitment to implement good sleep hygiene measures and lose weight and is going to see his dentist regarding the possibility of an oral appliance. No need for CPAP therapy. Sleep Note - Sleep Data ESS Total: 3 - Sleep Note Sleep Note: Temperature: 98.2 F Pulse Rate: 90 Respiratory Rate: 16 Blood Pressure: 143/90 SpO2: 97 Height: 5 ft 11 in Weight: 149.685 kg BMI: Neck Circumference: 20.5
== END ==
LOC: 3 N SLEEP 13:08
PROVIDERS: ATTEND Internal Medicine Critical Care Medicine
DX: G47.33 Obstructive sleep apnea (adult) (pediatric) (principal); R53.82 Chronic fatigue, unspecified; E66.9 Obesity, unspecified; I10 Essential (primary) hypertension; E78.5 Hyperlipidemia, unspecified; E11.42 Type 2 diabetes mellitus with diabetic polyneuropathy; F79 Unspecified intellectual disabilities; G47.52 REM sleep behavior disorder; Z68.42 Body mass index [BMI] 45.0-49.9, adult; Z79.4 Long term (current) use of insulin; Z79.85 Long-term (current) use of injectable non-insulin antidiabetic drugs; Z79.899 Other long term (current) drug therapy; Z87.891 Personal history of nicotine dependence
CPT/HCPCS: 99211